=== PATIENT | male | born 1990 | race Two or more races ===

== ENCOUNTER 2022-04-22 08:14 | Emergency (ER) | payer BC, MEDICAID, OTHER ==
[~2022-04-22] VITALS: Ht 172.7 cm; Wt 96.0 kg
[2022-04-22] MEDS ORDERED: HYDROcodone-ACET 10/325MG TAB PO ONE ×2 (10:15→13:15)
[2022-04-22] MEDS ORDERED: LIDOCAINE 1% HCL (LOCAL ANESTH.) INJ 20ML MDV IJ ONE (13:15)
[2022-04-22] MEDS ORDERED: BACITRACIN TOP OINT 1 UD PKG TOP ONE (13:45)
[2022-04-22] MEDS ORDERED: LIDOCAINE 1% HCL (LOCAL ANESTH.) INJ 20ML MDV ID ONE (14:00)
[2022-04-22] MEDS ORDERED: IBU600T PO (15:00)
[2022-04-22] MEDS ORDERED: CEPH-322 PO (15:00)
[2022-04-22 15:29] VITALS: BP 101/64
== END 2022-04-22 15:30 | disposition home or self-care (01) ==
LOC: EDBD 08:14 → ER 08:14
DX: S41.012A Laceration without foreign body of left shoulder, initial encounter (principal); V89.2XXA Person injured in unspecified motor-vehicle accident, traffic, initial encounter; Y93.89 Activity, other specified; Y92.89 Other specified places as the place of occurrence of the external cause; Y99.8 Other external cause status
CPT/HCPCS: 12002; 70450; 71260; 72125; 73060; 73090; 74177; 99285; J2001